=== PATIENT | female | born 1995 | race African-American/Black ===

== ENCOUNTER 2020-12-14 22:53 | Emergency (ER) | payer OTHER, SELFPAY ==
[2020-12-14 23:08] VITALS: BP 129/90; PULSE 85; RESP 16; TEMP 36.9; O2SAT 100
--- NOTE | 2020-12-15 01:18 | ED.GENADULT ---
HPI - General Adult General Chief complaint: Unspecified Stated complaint: fatigue Time Seen by Provider: 12/15/20 00:59 Source: patient History of Present Illness HPI narrative: Patient is a 25 y/o female complaining of severe generalized weakness for 1 week. There is no alleviating or exacerbating factor. She has no fever, chills, vomiting or diarrhea. She states that she is late on her period. Review of Systems Constitutional: Constitutional: Denies chills, Denies fever(s), Denies headache(s) and Reports weakness Eyes: Eyes: Denies blurry vision ENT: Denies headache(s) and Denies neck pain Cardiovascular: Cardiovascular: Denies chest pain and Denies dyspnea Respiratory: Respiratory: Denies cough and Denies dyspnea Gastrointestinal: Gastrointestinal: Denies abdominal pain, Denies diarrhea, Denies nausea and Denies vomiting Genitourinary: Genitourinary: Denies hematuria and Denies dysuria Musculoskeletal: Musculoskeletal: Denies back pain and Denies neck pain Neurologic: Denies headache(s) and Reports weakness Exam Const: General: no acute distress and well developed Orientation/consciousness: oriented to person, oriented to place, oriented to time and patient oriented x3 HENMT: Head: normocephalic Ears: external ears normal General nose exam: Normal external nose present Eyes: General: appearance normal, both eyes and all related structures Conjunctivae: conjunctivae normal Neck: Neck: normal visual inspection and full ROM Chest: Chest palpation & inspection: normal inspection of the chest and no tenderness Resp: Effort & Inspection: normal respiratory effort Auscultation: clear to auscultation bilaterally Cardio: Rate: regular rate Rhythm: regular rhythm GI: GI Palp: No abdominal tenderness and Yes Soft to palpation Skin: General skin exam: normal color and turgor normal Neuro: General: oriented to person, oriented to place, oriented to time and patient oriented x3 Cognition (Neuro): normal cognition Extrem: General: normal to inspection, full ROM and no pedal edema Psych: Appearance: grossly normal Mental Status: mental status grossly normal Affect: normal affect Course Vital Signs Vital signs: Vital Signs Temperature 36.9 C 12/14/20 23:08 Pulse Rate 85 12/14/20 23:08 Respiratory Rate 16 12/14/20 23:08 Blood Pressure 129/90 12/14/20 23:08 Pulse Oximetry 100 12/14/20 23:08 Temperature 36.9 C 12/14/20 23:08 Pulse Rate 74 12/15/20 02:10 Respiratory Rate 18 12/15/20 02:10 Blood Pressure 122/81 12/15/20 02:10 Pulse Oximetry 98 12/15/20 02:10 Medical Decision Making Vital Signs Vital Signs: Vital Signs Temperature 36.9 C 12/14/20 23:08 Pulse Rate 85 12/14/20 23:08 Respiratory Rate 16 12/14/20 23:08 Blood Pressure 129/90 12/14/20 23:08 Pulse Oximetry 100 12/14/20 23:08 Temperature 36.9 C 12/14/20 23:08 Pulse Rate 74 12/15/20 02:10 Respiratory Rate 18 12/15/20 02:10 Blood Pressure 122/81 12/15/20 02:10 Pulse Oximetry 98 12/15/20 02:10 Lab Data Result diagrams: 12/15/20 01:06 12/15/20 01:06 Labs: Lab Results 12/15/20 12/15/20 12/15/20 Range/Units 01:06 01:06 01:06 WBC 6.3 (4.5-10.0) K/mm3 RBC 5.08 (4.2-5.4) M/mm3 Hgb 13.2 (12.0-15.0) g/dL Hct 41.0 (37.0-47.0) % MCV 80.7 (80-100) fl MCH 26.0 (26-34) pg MCHC 32.2 (32-36) g/dl RDW 14.4 (11.5-14.5) % Plt Count 235 (150-375) k/mm3 MPV 11.5 H (7.4-10.4) fl Immature Gran % (Auto) 0.2 (0-0.5) % Neut % (Auto) 45.6 (45.5-73.1) % Lymph % (Auto) 42.7 (18.3-44.2) % [place] % (Auto) 7.1 (2.6-8.5) % Eos % (Auto) 4.1 (0-4.4) % Baso % (Auto) 0.3 (0.2-1.2) % Lymph # (Auto) 2.70 (0.9-3.2) K/mm3 [place] # (Auto) 0.5 (0.1-0.6) K/mm3 Eos # (Auto) 0.3 (0-0.3) K/mm3 Baso # (Auto) 0.0 (0.0-0.1) K/mm3 Abs Immat Gran (auto) 0.01 (0.00-0.031) K/mm3 Ab
[2020-12-15 01:22] LABS: Basophils Percent Auto 0.3 % (0.2-1.2); Eosinophils Absolute Auto 0.3 K/mm3 (0-0.3); Eosinophils Percent Auto 4.1 % (0-4.4); Hemoglobin 13.2 g/dL (12.0-15.0); Immature Granulocyte Absolute 0.01 K/mm3 (0.00-0.031); Immature Granulocyte Percent A 0.2 % (0-0.5); Lymphocytes Percent Auto 42.7 % (18.3-44.2); Mean Corpuscular HGB Conc 32.2 g/dl (32-36); Mean Corpuscular Volume 80.7 fl (80-100); Mean Platelet Volume 11.5 fl (7.4-10.4); Monocytes Absolute Auto 0.5 K/mm3 (0.1-0.6); Monocytes Percent Auto 7.1 % (2.6-8.5); Neutrophils Absolute Auto 2.9 K/mm3 (1.3-6.7); Neutrophils Percent Auto 45.6 % (45.5-73.1); Platelet Count Result 235 k/mm3 (150-375); Red Blood Count 5.08 M/mm3 (4.2-5.4); Red Cell Distribution Width 14.4 % (11.5-14.5); White Blood Count 6.3 K/mm3 (4.5-10.0)
[2020-12-15 01:24] LABS: Add Urine Microscopic? NO; Appearance Urine Clear (Clear); Bilirubin Urine Negative (Negative); Blood Urine Negative (Negative); Color Urine Colorless (Yellow); Glucose Urine UA Negative (Negative); Ketones Urine Negative (Negative); Leukocyte Esterase Ur Negative LEU/UL (Negative); Nitrate Urine Negative (Negative); Protein Urine Negative (Negative); Urobilinogen Urine Negative mg/dL (<2.0)
[2020-12-15 01:30] LABS: Specific Grav Ur 1.003 (1.001-1.035)
[2020-12-15 01:50] LABS: Alanine Aminotransferase 16 U/L (4-35); Albumin Level 4.7 g/dL (3.5-5.1); Alkaline Phosphatase 49 U/L (38-126); Anion Gap 11 mmol/L (8-16); Aspartate Amino Transferase 25 U/L (14-36); Bilirubin,Total 0.2 mg/dL (0.2-1.3); Blood Urea Nitrogen 8 mg/dL (7-17); Carbon Dioxide 24 mmol/L (22-30); Chloride 103 mmol/L (98-107); Estimated CRCL calculation 90 ml/min; Estimated Glomerular Filt Rate > 60; Glucose 82 mg/dL (65-105); Potassium 3.4 mmol/L (3.4-5.0); Sodium 138 mmol/L (137-145)
[2020-12-15 02:10] VITALS: BP 122/81; PULSE 74; RESP 18; O2SAT 98
== END 2020-12-15 02:12 | disposition home or self-care (01) ==
PROVIDERS: Emergency Provider Emergency Medicine; PCP Family Medicine
DX: R53.1 Weakness (principal)
CPT/HCPCS: 36415; 80053; 81003; 81025; 85025; 99283

== ENCOUNTER 2021-02-12 00:57 | Emergency (ER) | payer OTHER, SELFPAY ==
[2021-02-12 01:02] VITALS: BP 126/92; PULSE 65; RESP 16; TEMP 36.3; O2SAT 100
--- NOTE | 2021-02-12 01:16 | ECG_ITS ---
Measurements Intervals [place] Rate: 55 P: 71 LA: 184 QRS: 61 QRSD: 92 T: 30 QT: 427 QTc: 410 Interpretive Statements SINUS BRADYCARDIA T WAVE ABNORMALITY IN ANTERIOR LEADS- CONSIDER ISCHEMIA ABNORMAL ECG Electronically Signed On 02-12-2021 7:52:24 CDT by Keon Parrish D.O.
[2021-02-12] MEDS: SODIUM CHLORIDE 0.9% IV 1,000 ML 999 ML IV CONT (01:31)
[2021-02-12] MEDS: ONDANSETRON INJ 4 MG/2 ML VIAL IV PUSH (01:33)
[2021-02-12 01:35] LABS: Basophils Percent Auto 0.4 % (0.2-1.2); Eosinophils Absolute Auto 0.2 K/mm3 (0-0.3); Eosinophils Percent Auto 3.1 % (0-4.4); Hematocrit 36.9 % (37.0-47.0); Lymphocytes Absolute Auto 2.28 K/mm3 (0.9-3.2); Lymphocytes Percent Auto 44.5 % (18.3-44.2); Mean Corpuscular HGB Conc 32.5 g/dl (32-36); Mean Corpuscular Hemoglobin 25.9 pg (26-34); Mean Corpuscular Volume 79.5 fl (80-100); Monocytes Absolute Auto 0.5 K/mm3 (0.1-0.6); Neutrophils Absolute Auto 2.2 K/mm3 (1.3-6.7); Platelet Count Result 196 k/mm3 (150-375); Red Blood Count 4.64 M/mm3 (4.2-5.4); Red Cell Distribution Width 14.4 % (11.5-14.5); White Blood Count 5.1 K/mm3 (4.5-10.0)
--- NOTE | 2021-02-12 01:43 | ED.GENADULT ---
HPI - General Adult General Chief complaint: Unspecified Stated complaint: zoloft with ETOH/ doesn't feel right Time Seen by Provider: 02/12/21 01:12 History of Present Illness HPI narrative: Patient [id number] female presents the emergency department with chief complaint of feeling strange. The patient reports that she started taking Zoloft 3 days ago and then tonight decided that she would drink alcohol. The patient reports she had approximately 3 shots and then felt as though she had had more shots than normal and reports that she feels strange over her body has a tight feeling in her chest and feels very dry and very tired. Patient reports her symptoms are worsened with drinking and improved with rest Review of Systems Review of Systems: Narrative: A 10 system review of systems was completed on the patient and is negative except for what is stated in the HPI. Nursing and ancillary documentation was reviewed. PMFSH Comments Patient has past medical history significant for depression Social history patient socially drinks alcohol Exam Narrative: Exam Narrative: GENERAL: Well-appearing, well-nourished, and in no acute distress. HEAD: Normocephalic, atraumatic. EYES: PERRLA and EOMI. ENT: Nares clear, no rhinorrhea or epistaxis. Mucous membranes moist. NECK: Supple. CHEST: Clear to auscultation. No respiratory distress. HEART: Regular rate and rhythm. No murmur heard. Normal peripheral pulses. ABDOMEN: Soft, nontender, nondistended, normal active bowel sounds. EXTREMITIES: Normal range of motion. No edema. SKIN: Warm, dry, no rash. NEURO: No focal deficits. Alert and oriented x3. PSYCH: Normal mood and affect. Course Vital Signs Vital signs: Vital Signs Temperature 36.3 C L 02/12/21 01:02 Pulse Rate 65 02/12/21 01:02 Respiratory Rate 16 02/12/21 01:02 Blood Pressure 126/92 H 02/12/21 01:02 Pulse Oximetry 100 02/12/21 01:02 Temperature 36.3 C L 02/12/21 01:02 Pulse Rate 65 02/12/21 01:02 Respiratory Rate 16 02/12/21 01:02 Blood Pressure 126/92 H 02/12/21 01:02 Pulse Oximetry 100 02/12/21 01:02 Medical Decision Making Vital Signs Vital Signs: Vital Signs Temperature 36.3 C L 02/12/21 01:02 Pulse Rate 65 02/12/21 01:02 Respiratory Rate 16 02/12/21 01:02 Blood Pressure 126/92 H 02/12/21 01:02 Pulse Oximetry 100 02/12/21 01:02 Temperature 36.3 C L 02/12/21 01:02 Pulse Rate 65 02/12/21 01:02 Respiratory Rate 16 02/12/21 01:02 Blood Pressure 126/92 H 02/12/21 01:02 Pulse Oximetry 100 02/12/21 01:02 Lab Data Result diagrams: 02/12/21 01:31 02/12/21 01:31 Labs: Lab Results 02/12/21 02/12/21 02/12/21 Range/Units 01: 01:31 02:07 WBC 5.1 (4.5-10.0) K/mm3 RBC 4.64 (4.2-5.4) M/mm3 Hgb 12.0 (12.0-15.0) g/dL Hct 36.9 L (37.0-47.0) % MCV 79.5 L (80-100) fl MCH 25.9 L (26-34) pg MCHC 32.5 (32-36) g/dl RDW 14.4 (11.5-14.5) % Plt Count 196 (150-375) k/mm3 MPV 10.0 (7.4-10.4) fl Immature Gran % (Auto) 0.0 (0-0.5) % Neut % (Auto) 43.0 L (45.5-73.1) % Lymph % (Auto) 44.5 H (18.3-44.2) % [place] % (Auto) 9.0 H (2.6-8.5) % Eos % (Auto) 3.1 (0-4.4) % Baso % (Auto) 0.4 (0.2-1.2) % Lymph # (Auto) 2.28 (0.9-3.2) K/mm3 [place] # (Auto) 0.5 (0.1-0.6) K/mm3 Eos # (Auto) 0.2 (0-0.3) K/mm3 Baso # (Auto) 0.0 (0.0-0.1) K/mm3 Abs Immat Gran (auto) 0.00 (0.00-0.031) K/mm3 Absolute Neuts (auto) 2.2 (1.3-6.7) K/mm3 Absolute Nucleated RBC 0.0 (0.0-0.012) K/mm3 Nucleated RBC % 0.0 (0.0-0.2) % Sodium 136 L (137-145) mmol/L Potassium 3.2 L (3.4-5.0) mmol/L Chloride 102 (98-107) mmol/L Carbon Dioxide 29 (22-30) mmol/L Anion Gap 5 L (8-16) mmol/L BUN 10 (7-17) mg/dL Creatinine 0.90 (0.7-1.0) mg/dL Estim Creat Clear Calc 82 ml/min Estimated GFR > 60 (59 - ) Glucose 88
[2021-02-12 01:49] LABS: Alanine Aminotransferase 13 U/L (4-35); Alkaline Phosphatase 49 U/L (38-126); Anion Gap 5 mmol/L (8-16); Aspartate Amino Transferase 25 U/L (14-36); Bilirubin,Total 0.3 mg/dL (0.2-1.3); Blood Urea Nitrogen 10 mg/dL (7-17); Calcium 8.6 mg/dL (8.4-10.2); Carbon Dioxide 29 mmol/L (22-30); Chloride 102 mmol/L (98-107); Estimated CRCL calculation 82 ml/min; Estimated Glomerular Filt Rate > 60; Glucose 88 mg/dL (65-105); Potassium 3.2 mmol/L (3.4-5.0); Sodium 136 mmol/L (137-145)
[2021-02-12] MEDS: POTASSIUM CHLORIDE 20 MEQ TABLET 40 MEQ PO (02:13)
[2021-02-12 02:15] LABS: Add Urine Microscopic? NO; Appearance Urine Clear (Clear); Bilirubin Urine Negative (Negative); Blood Urine Negative (Negative); Color Urine Straw (Yellow); Glucose Urine UA Negative (Negative); Ketones Urine Negative (Negative); Leukocyte Esterase Ur Negative LEU/UL (Negative); Nitrate Urine Negative (Negative); Protein Urine Negative (Negative); Specific Grav Ur 1.006 (1.001-1.035); Urobilinogen Urine Negative mg/dL (<2.0)
[2021-02-12 02:51] VITALS: BP 119/69; PULSE 69; RESP 18; O2SAT 99
== END 2021-02-12 02:54 | disposition home or self-care (01) ==
PROVIDERS: Emergency Provider Emergency Medicine; PCP Family Medicine
DX: T43.221A Poisoning by selective serotonin reuptake inhibitors, accidental (unintentional), initial encounter (principal); T51.0X1A Toxic effect of ethanol, accidental (unintentional), initial encounter; R53.1 Weakness; F32.9 Major depressive disorder, single episode, unspecified; R00.1 Bradycardia, unspecified; R94.31 Abnormal electrocardiogram [ECG] [EKG]
CPT/HCPCS: 36415; 80053; 81003; 81025; 85025; 93005; 96361; 96374; 99284; A9270; J2405; J7030

== ENCOUNTER 2021-03-15 01:24 | Emergency (ER) | payer OTHER, SELFPAY ==
[2021-03-15 01:35] VITALS: BP 106/79; PULSE 63; RESP 14; TEMP 36.4; O2SAT 100
[2021-03-15] MEDS: diphenhydrAMINE HCl CAP 25 MG CAPSULE 50 MG PO (02:19)
[2021-03-15] MEDS: FAMOTIDINE 20 MG TABLET PO (02:20)
[2021-03-15] MEDS: methylPREDNISolone SOD SUCC 125 MG VIAL IM (02:21)
--- NOTE | 2021-03-15 02:41 | ED.GENADULT ---
HPI - General Adult General Chief complaint: Allergic Reaction Stated complaint: rash entire body Time Seen by Provider: 03/15/21 02:04 History of Present Illness HPI narrative: Patient 25-year-old female presents to emergency department chief complaint of rash. Patient states rash been going on for approximately 3 days reports that she itches and has several small spots that itch. The patient reports that she had no insect bites she is not sure of any new medications or new foods. Or laundry detergents patient reports that she drove herself this evening. Patient denies airway compromise denies shortness of breath denies tongue swelling. Related Data Home Medications Medication Instructions Recorded Confirmed sertraline mg DAILY 03/15/21 Allergies Allergy/AdvReac Type Severity Reaction Status Date / Time No Known Allergies Allergy Verified 03/15/21 01:47 Review of Systems Review of Systems: Narrative: A 10 system review of systems was completed on the patient and is negative except for what is stated in the HPI. Nursing and ancillary documentation was reviewed. Exam Narrative: Exam Narrative: GENERAL: Well-appearing, well-nourished, and in no acute distress. HEAD: Normocephalic, atraumatic. EYES: PERRLA and EOMI. ENT: Nares clear, no rhinorrhea or epistaxis. Mucous membranes moist. NECK: Supple. CHEST: Clear to auscultation. No respiratory distress. HEART: Regular rate and rhythm. No murmur heard. Normal peripheral pulses. ABDOMEN: Soft, nontender, nondistended, normal active bowel sounds. EXTREMITIES: Normal range of motion. No edema. SKIN: Warm, dry, there is an erythematous rash over the body. NEURO: No focal deficits. Alert and oriented x3. PSYCH: Normal mood and affect. Course Vital Signs Vital signs: Vital Signs Temperature 36.4 C L 03/15/21 01:35 Pulse Rate 63 03/15/21 01:35 Respiratory Rate 14 03/15/21 01:35 Blood Pressure 106/79 03/15/21 01:35 Pulse Oximetry 100 03/15/21 01:35 Temperature 36.4 C L 03/15/21 01:35 Pulse Rate 63 03/15/21 01:35 Respiratory Rate 14 03/15/21 01:35 Blood Pressure 106/79 03/15/21 01:35 Pulse Oximetry 100 03/15/21 01:35 Medical Decision Making Vital Signs Vital Signs: Vital Signs Temperature 36.4 C L 03/15/21 01:35 Pulse Rate 63 03/15/21 01:35 Respiratory Rate 14 03/15/21 01:35 Blood Pressure 106/79 03/15/21 01:35 Pulse Oximetry 100 03/15/21 01:35 Temperature 36.4 C L 03/15/21 01:35 Pulse Rate 63 03/15/21 01:35 Respiratory Rate 14 03/15/21 01:35 Blood Pressure 106/79 03/15/21 01:35 Pulse Oximetry 100 03/15/21 01:35 Discharge Plan Discharge Clinical Impression: Allergic reaction Qualifiers: Encounter type: initial encounter Qualified Code(s): T78.40XA - Allergy, unspecified, initial encounter Patient Disposition: Home, Self-Care Condition: Stable Instructions: Antibiotic Form, Acute Rash (ED), Allergies (ED) Prescriptions: New methylprednisolone [Medrol (Behzad)] 4 mg tablets,dose pack See Rx Instructions .ROUTE .COMPLEX Qty: 21 RF: 0 No Action sertraline 25 mg tablet DAILY RF: 0 Follow-up/Referrals: PHYSICIAN,ROUTE DELIVERY CLERK [Primary Care Provider] - Sonny Lopes MD [Physician] - 1 Week Time of Disposition: 02:46
[2021-03-15 02:56] VITALS: BP 119/82; PULSE 62; RESP 14; O2SAT 100
== END 2021-03-15 02:54 | disposition home or self-care (01) ==
PROVIDERS: Emergency Provider Emergency Medicine
DX: T78.40XA Allergy, unspecified, initial encounter (principal)
CPT/HCPCS: 96372; 99283; A9270; J2930

== ENCOUNTER → 2021-06-25 00:55 | Outpatient (CLI) | payer OTHER, SELFPAY ==
[2021-06-25 21:53] LABS: SARS-CoV-2 RNA PCR Negative
== END ==
PROVIDERS: PCP Emergency Medicine; Visit Provider Emergency Medicine
DX: R68.89 Other general symptoms and signs (principal); Z20.822 Contact with and (suspected) exposure to COVID-19
CPT/HCPCS: C9803; U0003; U0005

== ENCOUNTER 2021-08-22 13:54 | Emergency (ER) | payer OTHER, SELFPAY | END 2021-08-23 04:12 | disposition left against medical advice (07) | LOC: ANHED 14:00 | DX: Z53.21 Procedure and treatment not carried out due to patient leaving prior to being seen by health care provider (principal) | CPT/HCPCS: 99199 ==

== ENCOUNTER 2022-03-31 09:29 | Emergency (ER) | payer OTHER, SELFPAY ==
[2022-03-31 09:29] VITALS: BP 132/86; PULSE 85; RESP 18; TEMP 36.7; O2SAT 100
--- NOTE | 2022-03-31 09:39 | ECG_ITS ---
Measurements Intervals [place] Rate: 76 P: 72 SD: 162 QRS: 55 QRSD: 83 T: 26 QT: 376 QTc: 424 Interpretive Statements SINUS RHYTHM WITH SINUS ARRHYTHMIA DELAYED PRECORDIAL R/S TRANSITION BORDERLINE T WAVE ABNORMALITY- ANT/INF LEADS BORDERLINE ECG Electronically Signed On 03-31-2022 11:07:43 CDT by Keon Parrish D.O.
--- NOTE | 2022-03-31 09:42 | ED.GENADULT ---
HPI - General Adult General Chief complaint: Dizziness Stated complaint: dehydration Time Seen by Provider: 03/31/22 09:34 History of Present Illness HPI narrative: 26-year-old female presents emergency room for complaints of intermittent dizziness, lightheadedness for the past 3 hours. Patient states that she has been drinking excessive amounts of alcohol over the past month, and this morning at around 3:00 decided she was going to try methamphetamines. Patient denies headache, chest pain, shortness of breath or difficulty breathing. Patient denies any abdominal pain or dysuria. Related Data Home Medications Medication Instructions Recorded Confirmed sertraline mg DAILY 03/15/21 Allergies Allergy/AdvReac Type Severity Reaction Status Date / Time No Known Allergies Allergy Verified 03/31/22 09:37 Review of Systems Review of Systems: CONSTITUTIONAL: Denies fever, chills, or sweats. EYES: Denies visual changes, redness, or discharge. ENT: Reports dry mouth CARDIOVASCULAR: Denies chest pain, palpitations, or edema. RESPIRATORY: Denies cough or dyspnea. GASTROINTESTINAL: Denies abdominal pain, nausea, vomiting, or diarrhea. GENITOURINARY: Denies dysuria or hematuria. SKIN: Denies rash or itching. MUSCULOSKELETAL: Denies back pain, joint pain, or myalgia. NEUROLOGIC: Reports dizziness PSYCHIATRIC: Denies anxiety or depression. Exam Narrative: GENERAL: Well-appearing, well-nourished, and in no acute distress. HEAD: Normocephalic, atraumatic. EYES: PERRLA and EOMI. ENT: Nares clear, no rhinorrhea or epistaxis. Mucous membranes dry. CHEST: Clear to auscultation. No respiratory distress. No wheezes rales or rhonchi HEART: Regular rate and rhythm. No murmur heard. Normal peripheral pulses. ABDOMEN: Soft, nontender, nondistended, normal active bowel sounds. EXTREMITIES: Normal range of motion. No edema. SKIN: Warm, dry, no rash. NEURO: No focal deficits. Alert and oriented x3. PSYCH: Normal mood and affect. Course Vital Signs Vital signs: Vital Signs Temperature 36.7 C 03/31/22 09:29 Pulse Rate 85 03/31/22 09:29 Respiratory Rate 18 03/31/22 09:29 Blood Pressure 132/86 03/31/22 09:29 Pulse Oximetry 100 03/31/22 09:29 Temperature 36.7 C 03/31/22 09:29 Pulse Rate 85 03/31/22 09:29 Respiratory Rate 18 03/31/22 09:29 Blood Pressure 132/86 03/31/22 09:29 Pulse Oximetry 100 03/31/22 09:29 Medical Decision Making MDM Narrative Medical decision making narrative: 26-year-old female presents the emergency room for evaluation of dizziness lightheadedness following several weeks of heavy alcohol use and methamphetamine use this morning. CBC and CMP were unremarkable. Troponin was negative. EKG is normal sinus rhythm with no abnormalities. Urine shows no evidence of infection. Patient likely experiencing side effects of her methamphetamine use. Vital Signs Vital Signs: Vital Signs Temperature 36.7 C 03/31/22 09:29 Pulse Rate 85 03/31/22 09:29 Respiratory Rate 18 03/31/22 09:29 Blood Pressure 132/86 03/31/22 09:29 Pulse Oximetry 100 03/31/22 09:29 Temperature 36.7 C 03/31/22 09:29 Pulse Rate 85 03/31/22 09:29 Respiratory Rate 18 03/31/22 09:29 Blood Pressure 132/86 03/31/22 09:29 Pulse Oximetry 100 03/31/22 09:29 Lab Data Result diagrams: 03/31/22 10:02 03/31/22 10:02 Labs: Lab Results 03/31/22 03/31/22 03/31/22 Range/Units 10:02 10:02 10:02 WBC 4.2 L (4.5-10.0) K/mm3 RBC 4.81 (4.2-5.4) M/mm3 Hgb 12.1 (12.0-15.0) g/dL Hct 37.1 (37.0-47.0) % MCV 77.1 L (80-100) fl MCH 25.2 L (26-34) pg MCHC 32.6 (32-36) g/dl RDW 15.9 H (11.5-14.5) % Plt Count 227 (150-375) k/mm3 MPV 10.0 (7.4-10.4) fl Immature Gran % (Auto) 0.2 (0-0.5) % Neut % (Auto) 52.6 (45.5-73.1) % Lymph % (Auto) 31.4 (18.3-44.2) % [place] % (Auto) 9.9 H (2.6-8.5) % Eos % (Aut
[2022-03-31] MEDS: SODIUM CHLORIDE 0.9% IV 1,000 ML 999 ML IV CONT (10:01)
[2022-03-31 10:10] LABS: Basophils Percent Auto 0.7 % (0.2-1.2); Eosinophils Absolute Auto 0.2 K/mm3 (0-0.3); Eosinophils Percent Auto 5.2 % (0-4.4); Hematocrit 37.1 % (37.0-47.0); Hemoglobin 12.1 g/dL (12.0-15.0); Immature Granulocyte Absolute 0.01 K/mm3 (0.00-0.031); Immature Granulocyte Percent A 0.2 % (0-0.5); Lymphocytes Absolute Auto 1.33 K/mm3 (0.9-3.2); Lymphocytes Percent Auto 31.4 % (18.3-44.2); Mean Corpuscular HGB Conc 32.6 g/dl (32-36); Mean Corpuscular Hemoglobin 25.2 pg (26-34); Mean Corpuscular Volume 77.1 fl (80-100); Monocytes Absolute Auto 0.4 K/mm3 (0.1-0.6); Monocytes Percent Auto 9.9 % (2.6-8.5); Neutrophils Absolute Auto 2.2 K/mm3 (1.3-6.7); Neutrophils Percent Auto 52.6 % (45.5-73.1); Platelet Count Result 227 k/mm3 (150-375); Red Blood Count 4.81 M/mm3 (4.2-5.4); Red Cell Distribution Width 15.9 % (11.5-14.5); White Blood Count 4.2 K/mm3 (4.5-10.0)
--- NOTE | 2022-03-31 10:12 | PC.NURSE ---
pt states she is unable to urinate at this time and is declining a straight cath. pt states she will try after fluids.
[2022-03-31 10:22] LABS: Ethanol 21 mg/dL (<10)
[2022-03-31 10:23] LABS: Alanine Aminotransferase 11 U/L (6-35); Albumin Level 4.4 g/dL (3.5-5.1); Alkaline Phosphatase 57 U/L (38-126); Anion Gap 10 mmol/L (8-16); Aspartate Amino Transferase 22 U/L (14-36); Bilirubin,Total 0.6 mg/dL (0.2-1.3); Blood Urea Nitrogen 5 mg/dL (7-17); Calcium 8.5 mg/dL (8.4-10.2); Carbon Dioxide 22 mmol/L (22-30); Chloride 104 mmol/L (98-107); Estimated CRCL calculation 90 ml/min; Estimated Glomerular Filt Rate > 60; Glucose 80 mg/dL (65-110); Potassium 3.7 mmol/L (3.4-5.0); Sodium 136 mmol/L (137-145)
[2022-03-31 10:34] LABS: Troponin I 0.014 ng/mL (0.000-0.034)
[2022-03-31 11:00] LABS: Add Urine Microscopic? NO; Appearance Urine Clear (Clear); Bilirubin Urine Negative (Negative); Blood Urine Negative (Negative); Color Urine Light Yellow (Yellow); Glucose Urine UA Negative (Negative); Ketones Urine Negative (Negative); Leukocyte Esterase Ur Negative LEU/UL (Negative); Nitrate Urine Negative (Negative); Protein Urine Negative (Negative); Urobilinogen Urine 0.2 mg/dL (<2.0); pH Urine 6.5 (5.0-9.0)
[2022-03-31 11:17] LABS: Amphetamine Screen Urine Positive (Negative); Barbiturate Screen Urine Negative (Negative); Benzodiazepines Screen Urine Negative (Negative); Cannabinoid Screen Urine Negative (Negative); Cocaine Screen Urine Negative (Negative); Methadone Screen Urine Negative (Negative); Opiate Screen Urine Negative (Negative); Phencyclidine Screen Urine Negative (Negative)
[2022-03-31 11:55] VITALS: BP 122/83; PULSE 91; RESP 16; O2SAT 100
== END 2022-03-31 11:56 | disposition home or self-care (01) ==
PROVIDERS: Emergency Provider Nurse Practitioner Family
DX: T43.621A Poisoning by amphetamines, accidental (unintentional), initial encounter (principal); R42 Dizziness and giddiness; R94.31 Abnormal electrocardiogram [ECG] [EKG]
CPT/HCPCS: 36415; 80053; 80307; 81003; 81025; 84484; 85025; 93005; 96360; 99284; J7030

== ENCOUNTER 2024-03-11 09:03 | Emergency (ER) | payer OTHER, SELFPAY ==
[2024-03-11 09:08] VITALS: BP 136/98; PULSE 83; RESP 16; TEMP 36; O2SAT 99
--- NOTE | 2024-03-11 09:44 | ED.GENADULT ---
HPI - General Adult General Chief complaint: Psychiatric Symptoms Stated complaint: psych eval-out of Klonopin Time Seen by Provider: 03/11/24 09:06 History of Present Illness HPI narrative: Marimar Anderson is a 28 y/o female who presents today looking for a referral for a new psychiatrist. She explains that she has been seeing Dr. Castle, she last saw her two weeks ago. Dr. Castle has been tapering her off of her Klonopin and she does not want to get off of her Klonopin and wants to get back on it because that helps with her anxiety. She feels increased stress with her work and the increase cost of living and feels that she needs her Klonopin. She does not want to go back to see Dr. Castle she wants to go to a new psychiatrist She denies SI/HI/AVH Related Data Home Medications Medication Instructions Recorded Confirmed sertraline 25 mg tablet mg DAILY 03/15/21 Allergies Allergy/AdvReac Type Severity Reaction Status Date / Time No Known Allergies Allergy Verified 03/11/24 09:13 Review of Systems Review of Systems: All systems reviewed & are unremarkable except as noted in HPI and below PMFSH Social History Social History Substance use type: does not use Exam Narrative: GENERAL: Well-appearing, well-nourished, and in no acute distress. HEAD: Normocephalic, atraumatic. EYES: PERRLA and EOMI. ENT: Nares clear, no rhinorrhea or epistaxis. Mucous membranes moist. NECK: Supple. No adenopathy or masses. No carotid bruits or JVD CHEST: Clear to auscultation. No respiratory distress. No wheezes rales or rhonchi HEART: Regular rate and rhythm. No murmur heard. Normal peripheral pulses. EXTREMITIES: Normal range of motion. No edema. SKIN: Warm, dry, no rash. NEURO: No focal deficits. Alert and oriented x3. PSYCH:Calm / cooperative / pleasant / Course Vital Signs Vital signs: Vital Signs Temperature 36.0 C L 03/11/24 09:08 Pulse Rate 83 03/11/24 09:08 Respiratory Rate 16 03/11/24 09:08 Blood Pressure 136/98 H 03/11/24 09:08 Pulse Oximetry 99 03/11/24 09:08 Oxygen Delivery Room Air 03/11/24 09:08 Temperature 36.0 C L 03/11/24 09:08 Pulse Rate 83 03/11/24 09:08 Respiratory Rate 16 03/11/24 09:08 Blood Pressure 136/98 H 03/11/24 09:08 Pulse Oximetry 99 03/11/24 09:08 Oxygen Delivery Room Air 03/11/24 09:08 Medical Decision Making MDM Narrative Medical decision making narrative: 28 y/o female who presents today to get a referral for a new psychiatrist She denies SI/HI/AVH She still has Klonopin left but wants to follow up with a new psychiatric to get another opinion to treat her anxiety She does state that she felt increased stress anxiety today while at work and came here. - She has not taken her Klonopin today yet because she is hoping to make it last a little longer Will give her a 0.5 of ativan PO for anxiety here [facility] called to get a referral for pt - She will be given the information for [facility] to follow up with [phone] Patient provided with strict return precautions if she develops any worsening symptoms or concerns. Discharge plan discussed with pt and she is agreeable with plan and denies needing anything further Medical Records Medical records reviewed: Yes I reviewed the external patient's medical records. Vital Signs Vital Signs: Vital Signs Temperature 36.0 C L 03/11/24 09:08 Pulse Rate 83 03/11/24 09:08 Respiratory Rate 16 03/11/24 09:08 Blood Pressure 136/98 H 03/11/24 09:08 Pulse Oximetry 99 03/11/24 09:08 Oxygen Delivery Room Air 03/11/24 09:08 Temperature 36.0 C L 03/11/24 09:08 Pulse Rate 83 03/11/24 09:08 Respiratory Rate 16 03/11/24 09:08 Blood Pressure 136/98 H 03/11/24 09:08 Pulse Oximetry 99 03/11/24 09:08 Oxygen Delivery Room Air 03/11/24 09:08 Vitals reviewed by me. Discharge Plan Discharge Clinical I
[2024-03-11] MEDS: LORazepam (*CRX) 0.5 MG TABLET PO (09:54)
== END 2024-03-11 10:15 | disposition home or self-care (01) ==
PROVIDERS: Emergency Provider Nurse Practitioner Family; Referring Provider Emergency Medicine
DX: F41.9 Anxiety disorder, unspecified (principal); Z76.0 Encounter for issue of repeat prescription
CPT/HCPCS: 99281; A9270